=== PATIENT | male | born 1955 | race American Indian/Alaskan Native ===

== ENCOUNTER 2017-05-08 08:05 | Day surgery (SDC) | payer BC, OTHER ==
[~2017-05-08] VITALS: Ht 165.1 cm; Wt 72.6 kg
[~2017-05-08 08:05] MED LIST: ALKA-SELTZER H1 EACH PO; FLAGYL500 MG PO; NORCO 5-325 TA1 EACH PO; PEPTO-BISMOL262 MG PO; TUMS300 MG PO
--- NOTE | 2017-05-08 11:40 | NUR ---
05/08/17 1140 Charlette Louise [facility] [place]
--- NOTE | 2017-05-08 13:41 | NUR ---
PT AMBULATORY TO RESTROOM WITHOUT ASSIST. REPORTS HE WAS UNABLE TO URINATE AGAIN DESPITE URGE.
--- NOTE | 2017-05-08 13:57 | NUR ---
PT AGAIN UP TO RESTROOM. STATES HE WAS ABLE TO GO "A COUPLE DROPS". RETURNS TO BED.
--- NOTE | 2017-05-08 14:29 | NUR ---
PT UP TO RESTROOM, STATES HE IS GOING "A LITTLE BIT AT A TIME" BUT DOES NOT FEEL THAT HE IS EMPTYING HIS BLADDER. PT REPORTS PAIN 4/10 AT THIS TIME.
--- NOTE | 2017-05-08 15:06 | NUR ---
16 FR SIMMONS CATHETER INSERTED USING STERILE TECHNIQUE PER PROTOCOL USING LIDOCAINE LUBRICANT. PT HAS SIGNIFICANT DISCOMFORT W/INSERTION OF SIMMONS AND RESISTANCE IS NOTED AT THE LEVEL OF THE PROSTATE. 575 ML LIGHT YELLOW URINE EMPTIED FROM OVERNIGHT BAG AND PT AND HIS SIG OTHER ARE BOTH EDUCATED RE KEEPING THE SIMMONS TO GRAVITY AND RETURNING TO DR. GAMEZ'S OFFICE ON SATURDAY TO HAVE THE SIMMONS REMOVED. PT AND SIG OTHER BOTH VERBALIZE UNDERSTANDING. SIMMONS SECURED W/CATH SECURE ON RIGHT UPPER THIGH. PT REPORTS MUCH RELIEF OF BLADDER PAIN W/SIMMONS PLACEMENT.
[2017-05-08] MEDS ORDERED: NORCO 10-325 T1 EACH PO (15:07)
--- NOTE | 2017-05-08 15:38 | NUR ---
LE 1215: ICE WATER AND APPLE SAUCE GIVEN, CALL LIGHT WITHIN REACH. PT UP TO BATHROOM WITH RN STANDBY. PT AMBULATES WELL AND DENIES DIZZINESS. PT UNABLE TO EMPTY BLADDER. PT REQUESTS TO STAND AT BEDSIDE. PT REPORTS DISCOMFORT IN BLADDER. PT EATING APPLESAUCE AND TOLERATING WELL. PT BLADDER SCANNED AND NOTED TO HAVE 841ML IN BLADDER. NOTIFIED, NEW ORDER RECEIVED. IN AND OUT CATHETERIZATION DONE USING STERILE TECHNIQUE PER PROTOCOL AND LIDOCAINE LUBRICANT. PT TOLERATES WELL. 800 MLS OF LIGHT YELLOW URINE EXPELLED. LE 1500: PT REPORTS CONTINUED INABILITY TO EMPTY BLADDER. PT BLADDER SCANNED, 566 MLS NOTED. NOTIFIED, NEW ORDER RECEIVED. LE 1520: VERBAL DC INSTRUCTIONS GIVEN. PT AND SIGNIFICANT OTHER VERBALIZE UNDERSTANDING AND QUESTIONS ANSWERED. PT DRESSED WHEN RN ENTERS ROOM AND REQUESTING DC HOME. SIGNIFICANT OTHER TEARFUL AND REPORTS BEING HUNGRY. RN OFFERS LUNCH TRAY AND SHE DECLINED. PT TRANSFERS WELL TO WHEELCHAIR AND PERSONAL VEHICLE AND IS DC'D HOME.
--- NOTE | 2017-05-08 16:50 | NUR ---
CALLED DR GAMEZ'S OFFICE AND SPOKE TO JESSIE REGARDING SIMMONS CATHETER REMOVAL ON SATURDAY (05/10/17) AT OFFICE.
--- NOTE | 2017-05-15 18:42 | OR ---
[facility] [address] [place], [place] [address] Signed DATE OF OPERATION: 05/08/2017 SURGEON: Shana Llanos MD PREOPERATIVE DIAGNOSIS: Reducible bilateral inguinal hernias. POSTOPERATIVE DIAGNOSIS: Reducible bilateral direct inguinal hernias. PROCEDURE: Bilateral Suman onlay mesh inguinal herniorrhaphy. ESTIMATED BLOOD LOSS: None. INDICATIONS: Richie is a 61-year-old gentleman who works in the [employer] for many years. There was a lot of heavy lifting in his line of work. He has been noticing some pain and swelling mainly in the right groin. His primary care provider realized he had a right inguinal hernia and asked him to see me as a general surgeon. He has been there for at least 3 months and he said it is worse when he has to bend over do activities. In the office, we realized on exam that he has bilateral inguinal hernias. The right is larger than the left. They both appear to be reducible. I had given him a brochure on hernias and we looked at that together in detail. He understands the nature of an inguinal hernia along with the difference between a primary suture repair and a mesh repair. We also reviewed the expected intraop and postop course. There is risk including but not limited to bleeding, infection, scarring, change in contour of the skin, damage to the nerves, ischemic orchitis, and recurrent hernias. He had expressed understanding and wished to proceed. PROCEDURE NOTE: Richie was taken into our operating room and placed in the supine position. He was given preoperative antibiotics along with subcutaneous heparin. SCDs were utilized. He was in agreement to repair both groin hernias. After this, he was prepped and draped in the usual sterile fashion. We made a standard oblique incision in his right groin and carried this down through the tissue bluntly and with the cautery. The external oblique fascia was developed along its length medially and laterally. The cord structures were then elevated at the level of pubic tubercle. The ilioinguinal and iliohypogastric nerves were visualized and protected throughout the case. On inspection, he had a Electronically Signed By: SHANA LLANOS MD 05/15/17 1842 PATIENT NAME: RICHIE BADILLO IIIONY OPERATIVE REPORT DATE OF : 55 PHYSICIAN: SHANA LLANOS MD REPORT #: [id number] REPORT IS CONFIDENTIAL AND NOT TO BE RELEASED WITHOUT AUTHORIZATION [facility] [address] [place] [id number] Signed moderate-sized direct inguinal reducible hernia. We inspected the cord structures at the level of deep ring and we looked carefully and there was no evidence of an indirect hernia sac. We therefore reduced the direct hernia and we imbricated the inguinal floor starting from the pubic tubercle up to the level of the deep ring with a running #2-0 PDS suture. After this, a piece of flat Prolene mesh was cut to fit his groin and a mesh was held in place medially and laterally with the help of running #1 Prolene suture. A slit had been made in the mesh to accommodate the cord structures at the level of deep ring. After this, local anesthetic was copiously injected in the wound. The wound was irrigated and suctioned out until clear. The external oblique fascia was closed over the repair with a running 2-0 PDS suture. Nkechi fascia was reapproximated in a running 3-0 Monocryl suture. The dermis was reapproximated with interrupted 3-0 Monocryl sutures. The skin edges were then reapproximated in a running 6-0 fast absorbing plain gut suture. After this, we approached his left groin. We used a measuring tape to measure out a mirror-image incision in the left groin, and the surgery and the repair were identical to the right. The left inguinal hernia was just slightly smaller than the right. Again, the ilioinguinal and iliohypogastric nerves were visualized and protected throughout the case. After this, dry gauze and tape was applied to both groins. He was awakened from his anesthesia, extubated in the OR, and taken to recovery room in stable condition. Shana Llanos MD [facility] /[id number] cc: MD Wu Moise PA Electronically Signed By: SHANA LLANOS MD 05/15/17 1842 PATIENT NAME: RICHIE BADILLO III OPERATIVE REPORT DATE OF : 55 PHYSICIAN: SHANA LLANOS MD REPORT #: [id number] REPORT IS CONFIDENTIAL AND NOT TO BE RELEASED WITHOUT AUTHORIZATION
== END 2017-05-08 15:25 | disposition home or self-care (01) ==
LOC: DS 08:05
PROVIDERS: Colon & Rectal Surgery
PROC: 0YUA0JZ Supplement Bilateral Inguinal Region with Synthetic Substitute, Open Approach (ICD-10-PCS; principal; 2017-05-08 09:00)
DX: K40.20 Bilateral inguinal hernia, without obstruction or gangrene, not specified as recurrent (principal); I10 Essential (primary) hypertension; E78.5 Hyperlipidemia, unspecified; E11.9 Type 2 diabetes mellitus without complications; F17.210 Nicotine dependence, cigarettes, uncomplicated
CPT/HCPCS: 00830; C1781; J0330; J0690; J1100; J1170; J1644; J1885; J2250; J2405; J2704; J3010; J7120

== ENCOUNTER 2017-07-08 07:13 | Emergency (ER) | payer BC, OTHER ==
[~2017-07-08] VITALS: Ht 165.1 cm; Wt 72.6 kg
[~2017-07-08 07:13] MED LIST changes: +NORCO 10-325 T1 EACH PO
[2017-07-08] MEDS ORDERED: PYRIDIUM200 MG PO (08:04)
[2017-07-08] MEDS ORDERED: DITROPAN XL5 MG PO (08:04)
[2017-07-08] MEDS ORDERED: FLOMAX0.4 MG PO (08:04)
== END 2017-07-08 08:10 | disposition home or self-care (01) ==
LOC: ED 07:13
PROC: 4A0D7LZ Measurement of Urinary Volume, Via Natural or Artificial Opening (ICD-10-PCS; principal; 2017-07-08)
PROC: 0T9B70Z Drainage of Bladder with Drainage Device, Via Natural or Artificial Opening (ICD-10-PCS; 2017-07-08)
DX: N40.1 Benign prostatic hyperplasia with lower urinary tract symptoms (principal); R33.8 Other retention of urine; I10 Essential (primary) hypertension; F17.200 Nicotine dependence, unspecified, uncomplicated
CPT/HCPCS: 51702; 51798; 81001; 99284

== ENCOUNTER 2017-07-11 07:34 | Emergency (ER) | payer BC, OTHER ==
[~2017-07-11] VITALS: Ht 165.1 cm; Wt 72.6 kg
[~2017-07-11 07:34] MED LIST changes: +DITROPAN XL5 MG PO; +FLOMAX0.4 MG PO; +PYRIDIUM200 MG PO
== END 2017-07-11 08:21 | disposition home or self-care (01) ==
LOC: ED 07:34
DX: T83.098A Other mechanical complication of other urinary catheter, initial encounter (principal); I10 Essential (primary) hypertension; F17.200 Nicotine dependence, unspecified, uncomplicated; Z79.899 Other long term (current) drug therapy
CPT/HCPCS: 99283

== ENCOUNTER 2020-07-08 13:37 | Emergency (ER) | payer BC, OTHER ==
[~2020-07-08] VITALS: Ht 165.1 cm; Wt 72.6 kg
--- NOTE | 2020-07-09 06:58 | EKG ---
[facility] [address] [facility] [place] [address] Signed Sinus tachycardia Otherwise normal ECG When compared with ECG of 07-MAY-2017 14:06, T wave inversion now evident in Inferior leads T wave inversion no longer evident in Lateral leads Confirmed by KENYA NAVA MD ([id number]) on 07/09/2020 6:58:30 AM Electronically Signed By: KENYA NAVA MD 07/09/20 0658 PATIENT NAME: SKYLAR BADILLO [facility] Electrocardiogram DATE OF : 55 PHYSICIAN: KENYA NAVA MD REPORT #: [id number] REPORT IS CONFIDENTIAL AND NOT TO BE RELEASED WITHOUT AUTHORIZATION
== END 2020-07-08 17:58 | disposition home or self-care (01) ==
LOC: ED 13:37
DX: R33.9 Retention of urine, unspecified (principal); D72.829 Elevated white blood cell count, unspecified; Z20.822 Contact with and (suspected) exposure to COVID-19; I10 Essential (primary) hypertension; F17.200 Nicotine dependence, unspecified, uncomplicated; Z79.899 Other long term (current) drug therapy
CPT/HCPCS: 51702; 51798; 71045; 80053; 81001; 83605; 83735; 84443; 84484; 85025; 93005; 93010; 99284-25; 99406; C9803; U0003

== ENCOUNTER 2020-07-29 16:28 | Emergency (ER) | payer BC, OTHER ==
[~2020-07-29] VITALS: Ht 165.1 cm; Wt 69.4 kg
[~2020-07-29 16:28] MED LIST changes: +AMLODIPINE BESY10 MG PO; +ASPIRIN325 MG PO; +ATORVASTATIN CA40 MG PO; +CLONIDINE HCL0.1 MG PO; +LEVETIRACETAM500 MG PO; +TAMSULOSIN HCL0.4 MG PO
--- OUTSIDE RECORDS SUMMARY | 2020-07-29 16:30 | XMS ---
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 Care History Medical/Surgical 07/13/2020 [facility] PATIENT HAS AN APT WITH UROLOGIST DR DEY 07/21/2020. 07/13/2020 [facility] PATIENT IS [facility] ELIGIBLE, \T\middot;\T\nbsp; PLEASE REFER PATIENT TO [facility] FOR NON EMERGENT MEDICAL NEEDS. \T\middot;\T\nbsp; [facility] CAN SEE PATIENTS SAME DAY FOR APTS IF PATIENT CALLS FIRST THING IN THE MORNING. E.D. VISIT COUNT (12 MO.) 3 [facility] TOTAL 3 NOTE: Visits indicate total known visits. 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
== END 2020-07-29 18:04 | disposition home or self-care (01) ==
LOC: ED 16:28
PROC: 0T9B70Z Drainage of Bladder with Drainage Device, Via Natural or Artificial Opening (ICD-10-PCS; principal; 2020-07-29)
DX: T83.091A Other mechanical complication of indwelling urethral catheter, initial encounter (principal); I10 Essential (primary) hypertension; E11.9 Type 2 diabetes mellitus without complications; F17.200 Nicotine dependence, unspecified, uncomplicated; Z79.899 Other long term (current) drug therapy; Z79.82 Long term (current) use of aspirin
CPT/HCPCS: 51702; 81001; 99283-25

== ENCOUNTER 2021-03-25 16:46 | Emergency (ER) | payer OTHER ==
[~2021-03-25] VITALS: Ht 165.1 cm; Wt 65.7 kg
[2021-03-25] MEDS ORDERED: FLOMAX0.4 MG PO (17:02)
== END 2021-03-25 17:47 | disposition home or self-care (01) ==
LOC: ED 16:46
PROC: 4A0D7LZ Measurement of Urinary Volume, Via Natural or Artificial Opening (ICD-10-PCS; principal; 2021-03-25)
DX: R33.9 Retention of urine, unspecified (principal); I10 Essential (primary) hypertension; E11.9 Type 2 diabetes mellitus without complications; E78.00 Pure hypercholesterolemia, unspecified; F17.200 Nicotine dependence, unspecified, uncomplicated; Z79.82 Long term (current) use of aspirin; Z79.899 Other long term (current) drug therapy
CPT/HCPCS: 51798; 81001; 99283-25

== ENCOUNTER 2021-04-07 05:57 | Emergency (ER) | payer OTHER ==
[~2021-04-07] VITALS: Ht 162.6 cm; Wt 68.0 kg
--- OUTSIDE RECORDS SUMMARY | 2021-04-07 06:04 | XMS ---
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/[place] 07/13/2020-[facility] PHONE: [phone] Shanna has no Care Guidelines for this patient. Care History Medical/Surgical 07/13/2020 [facility] PATIENT IS [facility] ELIGIBLE, \T\middot;\T\nbsp; PLEASE REFER PATIENT TO [facility] FOR NON EMERGENT MEDICAL NEEDS. \T\middot;\T\nbsp; [facility] CAN SEE PATIENTS SAME DAY FOR APTS IF PATIENT CALLS FIRST THING IN THE MORNING. 07/13/2020 [facility] PATIENT HAS AN APT WITH UROLOGIST DR DEY 08/04/2020. E.D. VISIT COUNT (12 MO.) 5 [facility] TOTAL 5 NOTE: Visits indicate total known visits. ED/UCC VISIT TRACKING (12 MO.) 04/07/2021 05:[address] [facility] [place] TYPE: Emergency COMPLAINT: - URINE PROBLEM 03/25/2021 16:46 [facility] [place] TYPE: Emergency COMPLAINT: - URINE PROBLEM DIAGNOSES: - Nicotine dependence, unspecified, uncomplicated - Retention of urine, unspecified - emt intermediate (current) use of aspirin - Essential (primary) hypertension - Other care home (current) drug therapy - Pure hypercholesterolemia, unspecified - Type 2 diabetes mellitus without complications 07/29/2020 16:28 [facility] [place] TYPE: Emergency COMPLAINT: - URINE PROBLEM DIAGNOSES: - Dysuria - Other mechanical complication of indwelling urethral catheter, initial encounter - Type 2 diabetes mellitus without complications - alf (current) use of aspirin - Other emt intermediate (current) drug therapy - Essential (primary) hypertension - Nicotine dependence, unspecified, uncomplicated 07/12/2020 09:32 [facility] [place] TYPE: Emergency COMPLAINT: - CATHETER REMOVAL DIAGNOSES: - Type 2 diabetes mellitus without complications - Nicotine dependence, unspecified, uncomplicated - alf (current) use of aspirin - Other care home (current) drug therapy - Pure hypercholesterolemia, unspecified - Encounter for fitting and adjustment of urinary device - Essential (primary) hypertension 07/08/2020 13:38 [facility] [place] TYPE: Emergency COMPLAINT: - UNABLE TO URINATE DIAGNOSES: - Essential (primary) hypertension - Retention of urine, unspecified - Elevated white blood cell count, unspecified - Nicotine dependence, unspecified, uncomplicated - Other emt intermediate (current) drug therapy INPATIENT VISIT TRACKING (12 MO.) No inpatient visits to display in this time frame [email or web address]
== END 2021-04-07 07:24 | disposition home or self-care (01) ==
LOC: ED 05:57
DX: R33.9 Retention of urine, unspecified (principal); I10 Essential (primary) hypertension; E11.9 Type 2 diabetes mellitus without complications; Z86.73 Personal history of transient ischemic attack (TIA), and cerebral infarction without residual deficits; E78.00 Pure hypercholesterolemia, unspecified; F17.200 Nicotine dependence, unspecified, uncomplicated; Z79.899 Other long term (current) drug therapy; Z79.82 Long term (current) use of aspirin
CPT/HCPCS: 51702; 51798; 80053; 81001; 85025; 99283-25

== ENCOUNTER 2021-04-26 16:51 | Emergency (ER) | payer OTHER ==
[~2021-04-26] VITALS: Ht 162.6 cm; Wt 68.0 kg
--- OUTSIDE RECORDS SUMMARY | 2021-04-26 16:58 | XMS ---
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 Care History Medical/Surgical 07/13/2020 [facility] PATIENT IS [facility] ELIGIBLE, \T\middot;\T\nbsp; PLEASE REFER PATIENT TO [facility] FOR NON EMERGENT MEDICAL NEEDS. \T\middot;\T\nbsp; [facility] CAN SEE PATIENTS SAME DAY FOR APTS IF PATIENT CALLS FIRST THING IN THE MORNING. 07/13/2020 [facility] PATIENT HAS AN APT WITH UROLOGIST DR DEY 08/04/2020. E.D. VISIT COUNT (12 MO.) 6 [facility] TOTAL 6 NOTE: Visits indicate total known visits. ED/UCC VISIT TRACKING (12 MO.) 04/26/2021 16:52 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 - Essential (primary) hypertension - Nicotine dependence, unspecified, uncomplicated - Type 2 diabetes mellitus without complications 03/25/2021 16:46 [facility] [place] TYPE: Emergency COMPLAINT: - URINE PROBLEM DIAGNOSES: - Nicotine dependence, unspecified, uncomplicated - Retention of urine, unspecified - 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 - Essential (primary) hypertension - Other nursing home (current) drug therapy - Pure hypercholesterolemia, unspecified - Type 2 diabetes mellitus without complications [facility] COMPLAINT: - URINE PROBLEM DIAGNOSES: - Dysuria - Other mechanical complication of indwelling urethral catheter, initial encounter - Type 2 diabetes mellitus without complications - 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 - Other intermediate designer (current) drug therapy - Essential (primary) hypertension - Nicotine dependence, unspecified, uncomplicated 07/12/2020 09[facility]32 [facility] COMPLAINT: - CATHETER REMOVAL DIAGNOSES: - Type 2 diabetes mellitus without complications - Nicotine dependence, unspecified, uncomplicated - 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 [place] TYPE: Emergency COMPLAINT: - UNABLE TO URINATE DIAGNOSES: - Essential (primary) hypertension - Retention of urine, unspecified - Elevated white blood cell count, unspecified - Nicotine dependence, unspecified, uncomplicated - Other nursing home (current) drug therapy INPATIENT VISIT TRACKING (12 MO.) No inpatient visits to display in this time frame [id number]
== END 2021-04-26 20:56 | disposition home or self-care (01) ==
LOC: ED 16:51
DX: R33.9 Retention of urine, unspecified (principal); I10 Essential (primary) hypertension; E11.9 Type 2 diabetes mellitus without complications; E78.00 Pure hypercholesterolemia, unspecified; F17.200 Nicotine dependence, unspecified, uncomplicated; Z79.899 Other long term (current) drug therapy; Z79.82 Long term (current) use of aspirin
CPT/HCPCS: 51702; 81001; 99283-25

== ENCOUNTER 2021-06-19 05:45 | Day surgery (SDC) | payer MEDICARE, OTHER ==
[~2021-06-19] VITALS: Ht 162.6 cm; Wt 70.0 kg
--- NOTE | 2021-06-19 06:08 | NUR ---
THIS RN TO ROOM TO ASSIST WITH IV START. IV STARTED PER PROTOCOL TO RIGHT FORARM, BRISK BLOOD RETURN NOTED. PT TOLERATED PROCEEDURE WELL. SCD'S APPLIED. BRII ARGUELLO, WORKING WITH PT. NO ADDITIONAL NEEDS AT THIS TIME. CALL LIGHT WITHIN REACH.
--- NOTE | 2021-06-19 06:20 | NUR ---
pt was swabbed for covid 19
--- NOTE | 2021-06-19 07:07 | NUR ---
SIMMONS CATH IN PLACE WHEN PT ARRIVED TO DS THIS MORNING. 150ML OF CLEAR YELLOW URINE IN SIMMONS BAG.
--- NOTE | 2021-06-19 08:29 | NUR ---
DR DEY IN WITH PT, WILL CHECK BACK
--- NOTE | 2021-06-19 10:45 | NUR ---
[facility] NON RESPONSIVE TO NOXIOUS STIMULI WITH OPA IN PLACE. 1000 PT REACTIVE. OPA REMOVED. 1015 OXYGEN REMOVED. SATS 90-93% ON RA. NO C/O'S. SIMMONS WITH CBI RUNNING. URINE LIGHT PINK IN COLOR. 1035 TO ROOM 123. REPORT GIVEN TO RN.
[2021-06-19] MEDS ORDERED: OXYCODONE HCL5 MG PO (10:55)
[2021-06-19] MEDS ORDERED: CIPRO500 MG PO (10:56)
--- NOTE | 2021-06-19 11:41 | NUR ---
1600 pink fluid dumped and recorded on wall for cbi - from jonathan. no addition/subtraction yet. pt resting - denies needs or pain - vs taken
--- NOTE | 2021-06-19 12:43 | NUR ---
pt resting denies pain, visitior alseep in ch. emptied castillo pink light urine with cbi irrigation - no totals yet. iv fusing well. scds on.
--- NOTE | 2021-06-19 13:49 | NUR ---
post op vitals x4 complete - pt denies needs, cbi wnl, iv fluids wnl - sipping water at bedside and occasional nap. call light in reach.
--- NOTE | 2021-06-19 17:22 | OR ---
[facility] [address], [place] [address] Signed DATE OF OPERATION: 06/19/2021 SURGEON: Gab Dey MD PREOPERATIVE DIAGNOSES: 1. Severe trilobar benign prostatic hyperplasia with lower urinary tract symptoms. 2. Acute urinary retention, status post multiple failed voiding trials. 3. Bullous edema present within the bladder, likely secondary to chronic indwelling Haynes catheter. POSTOPERATIVE DIAGNOSES: 1. Severe trilobar benign prostatic hyperplasia with lower urinary tract symptoms. 2. Acute urinary retention, status post multiple failed voiding trials. 3. Bullous edema present within the bladder, likely secondary to chronic indwelling Haynes catheter. 4. Negative diagnostic cystoscopy with interval resolution of bullous edema related to chronic indwelling Haynes catheter. NAMES OF PROCEDURE: Transurethral resection of the prostate. ANESTHESIA: General. ESTIMATED BLOOD LOSS: 50 mL. COMPLICATIONS: None. SPECIMENS: Multiple prostate chips sent to pathology for evaluation. DRAINS: A 22-Gibraltarian three-way Haynes catheter, connected to continuous bladder irrigation. INDICATIONS FOR PROCEDURE: Mr. Caballero is a very pleasant 65-year-old gentleman who presented to the emergency room in acute urinary retention a couple of months ago. He was subsequently placed on Flomax and despite the medication, continued to fail multiple voiding trials. He ultimately Electronically Signed By: GAB DEY MD 06/19/21 1722 PATIENT NAME: RICHIE CABALLERO [facility] OPERATIVE REPORT DATE OF : 55 REPORT #: [id number] PHYSICIAN: GAB DEY MD PCP: [facility] REPORT IS CONFIDENTIAL AND NOT TO BE RELEASED WITHOUT AUTHORIZATION [facility] [address], [place] [address] Signed underwent diagnostic cystoscopy, which revealed severe trilobar benign prostatic hyperplasia with active evidence of bladder outlet obstruction. Also, noted that time was some bullous edema present on the dome and posterior wall of the bladder that was likely secondary to reactive changes related to his chronic indwelling Haynes catheter. I explained to the patient that the best and only chance that he has a voiding on his own is to undergo transurethral removal of his obstructing prostate since his bladder is no longer able to overcome the outlet resistance related to the obstructing tissue. We discussed the risks and benefits of the procedure, and he has agreed to proceed. OPERATIVE FINDINGS: 1. On cystoscopy, there was no evidence of any bullous edema present on the posterior wall or dome of the bladder. More specifically, there are no suspicious lesions present within the bladder that require biopsy today. He does have a couple of bladder diverticula, the largest is present in the inferior aspect of the lateral wall of the bladder. Bilateral ureteral orifices are in their normal anatomic location effluxing clear urine. 2. A digital rectal examination was performed, which revealed a flat, broad based gland measuring around 50 g. His gland is soft, smooth and symmetric with no focal nodules. 3. The patient has a very large trilobar gland was resected in a stepwise fashion. His large median lobe was resected and this was followed by the left lateral lobe in the right lateral lobe of the prostate. His prostate measured approximately 2.5 cm in length from the bladder neck to the verumontanum. The resection was performed down to the level of the verumontanum to avoid any potential iatrogenic injury to the external sphincter. This was a very large gland and required a solid 2 hours of resection time. 4. At the end of the procedure, a 22-Gibraltarian three-way Haynes catheter was inserted in the patient's bladder, connected to continuous bladder irrigation. DESCRIPTION OF PROCEDURE: After informed consent was obtained, the patient was taken back to the operating room. He was transferred from the [facility] to the operating room table, where general anesthesia was induced. He was placed in the dorsal lithotomy position and his genitalia prepped and draped in a standard sterile fashion. Using a 30-degree lens on a 22.5-Gibraltarian introducer, a rigid cystoscope was inserted in through his urethra into his bladder under direct visualization. Panendoscopic views of bladder then obtained. Please see the findings. Also, noted on inspection of the external genitalia is mild urethral erosion secondary to his chronic indwelling Haynes catheter. Most of the erosion is present at the urethral meatus at this time. I then inserted a visual obturator with a 26-Gibraltarian sheath. Prior to this, the patient's urethral meatus was dilated from 28-Gibraltarian to 34-Gibraltarian without difficulty. Once the sheath was in place, I switched to the visual obturator out for resectoscope with a 24-Gibraltarian loop. I noted the location of the bilateral ureteral orifices and they were noted to not be near the bladder neck. I then began resection of the very large median lobe of the prostate. Once this was Electronically Signed By: GAB DEY MD 06/19/21 1722 PATIENT NAME: RICHIE CABALLERO III OPERATIVE REPORT DATE OF : 55 REPORT #: [id number] PHYSICIAN: GAB DEY MD PCP: [facility] REPORT IS CONFIDENTIAL AND NOT TO BE RELEASED WITHOUT AUTHORIZATION [place] [address] Signed fully resected, I turned my attention to the left lateral lobe of the prostate. Again the resection was taken down to the level of verumontanum on all three sides. Also resected a small amount of the anterior bladder neck, I achieved and maintained hemostasis initially using the 24-Gibraltarian bipolar loop. The patient's bladder was then irrigated with a Amilcar syringe multiple times throughout the procedure in order to retrieve all the prostate chips that were then ultimately sent to pathology for evaluation. After about an hour and a half of resection time with the bipolar loop, I switched to the bipolar button to try to achieve some additional hemostasis. More prostate tissue was resected with a bipolar button as well. The very large median lobe was completely removed along with both lateral lobes of the prostate. With the bipolar button, I was able to achieve a good deal of hemostasis and I again re-evaluated the bilateral ureteral orifices and they appeared to be untouched after the resection of the patient's prostate. Once all the chips were extracted using a Amilcar syringe and hemostasis had been achieved and maintained, I removed the resectoscope, leaving the 26-Gibraltarian sheath behind. I then inserted a 0.035 Sensor wire through the sheath and into the patient's bladder. The sheath was then removed fully intact. Over the wire, I passed a 22-Gibraltarian three-way Haynes catheter into the patient's bladder and filled the balloon with 30 mL of sterile water. The catheter itself seated nicely into the TUR defect. The catheter was then manually irrigated multiple times to assure good position. It was then connected to continuous bladder irrigation. A digital rectal examination was then performed. Please see the above findings. The patient tolerated the procedure well without any complication. He will now be transferred to the postanesthesia care unit in stable condition. DISPOSITION: I called the patient's and left a message on her voicemail. I mentioned that I will be back later today to check on Richie and to answer any additional questions that they may have. He will be sent home with Cipro 500 mg p.o. b.i.d. for a total of 7 days along with oxycodone 5 mg one tab q.6 hours p.r.n. pain, dispense #20. He will remain here overnight so that his CBI may be weaned off slowly. He will be discharged to home tomorrow morning with a Haynes catheter to gravity drainage. He will return to clinic this , June 22, to undergo a voiding trial. MD ALEX Hodgson/KASSANDRAL /[id number] Electronically Signed By: GAB DEY MD 06/19/211721 PATIENT NAME: RICHIE CABALLERO III OPERATIVE REPORT DATE OF : 55 REPORT #: [id number] PHYSICIAN: GAB DEY MD PCP: [facility] REPORT IS CONFIDENTIAL AND NOT TO BE RELEASED WITHOUT AUTHORIZATION [facility] [address] [facility] [place], [place] [address] Signed Copies: ~ Electronically Signed By: GAB DEY MD 06/19/21 1722 PATIENT NAME: RICHIE CABALLERO [facility] OPERATIVE REPORT DATE OF : 55 REPORT #: [id number] PHYSICIAN: GAB DEY MD PCP: [facility] REPORT IS CONFIDENTIAL AND NOT TO BE RELEASED WITHOUT AUTHORIZATION
--- NOTE | 2021-06-19 18:12 | NUR ---
dr aguilar in to [place] to pt and , cbi bag changed,pt forgetful, when rn was in with pt a little bit ago - he did not know where he was or that surgery was done, he woke up and was talkative and confused, rn re oriented pt and call light in reach, answered questions for pt and . pt denies needs
--- NOTE | 2021-06-19 19:44 | NUR ---
RECEIVED REPORT FROM DAY SHIFT RN. PATIENT IS RESTING IN BED WATHCING TV. PATIENT DENIES ANY NEEDS. CALL LIGHT IN REACH.
--- NOTE | 2021-06-19 20:52 | NUR ---
ASSISTED PRIMARY BRII FAM. V/S AND I&O'S TAKEN AND RECORDED. ICE WATER REFILLED.
--- NOTE | 2021-06-19 21:00 | NUR ---
PATIENT ASSESMENT COMPLETED. VITALS TAKEN AND RECORDED. INTAKE AND OUTPUT RECORDED. SIMMONS EMPTIED AND SIMMONS CARE COMPLETED. PATIENT DENIES ANY PAIN. IV INFUSING PER ORDER. PATIENTS CB1 TITRATED DOWN. PATIENT DENIES ANY NEEDS OR QUESTIONS. CALL LIGHT IN REACH.
--- NOTE | 2021-06-19 23:06 | NUR ---
PATIENTS SIMMONS EMPTIED AND TITRATED CBI. PATIENT IS RESTING IN BED WITH EYES CLOSED, RR 17. CALL LIGHT IN REACH.
--- NOTE | 2021-06-20 00:33 | NUR ---
PATIENT IS RESTING IN BED WITH EYES CLSOED, RR 17. CALL LIGHT IN REACH. CBI CONTINUES AT A SLOW DRIP.
--- NOTE | 2021-06-20 02:40 | NUR ---
PATIENTS VITALS TAKEN AND RECORDED. SIMMONS EMPTIED. INTAKE AND OUTPUT RECORDED. CBI CLAMPED AT 0200. IV INFUSING PER ORDER. PATIENT DENIES ANY NEEDS. CALL LIGHT IN REACH.
--- NOTE | 2021-06-20 04:14 | NUR ---
PATIENT IS RESTING IN BED WITH EYES CLOSED, RR 18. PATIENT REMAINS ON 4L VIA NC. OXYGEN SATURATION IS 94%. CALL LIGHT IN REACH.
--- NOTE | 2021-06-20 05:46 | NUR ---
PATIENT ASSESMENT COMPLETED. CBI FLUSHED CLOT IN TUBING. VITALS TAKEN AND RECORDED. SIMMONS EMPTIED. INTAKE AND OUTPUT RECORDED. PATIENT DENIES ANY PAIN OR NEEDS. CALL LIGHT IN REACH.
--- NOTE | 2021-06-20 06:31 | NUR ---
PATIENT IS RESTING IN BED WITH EYES CLOSED, RR 16. CALL LIGHT IN REACH. CBI REMAINS CLAMPED YELLOW IN TUBE IS LIGHT PINK AND NO CLOTS NOTED.
--- NOTE | 2021-06-20 07:30 | NUR ---
SHIFT REPORT GIVEN TO THIS RN FROM BRII FAM ON [facility]. PATIENT IS RESTING QUIETLY, EYES CLOSED, RESPIRATIONS ARE REGULAR AND EVEN, AND CALL LIGHT IS IN REACH. PATIENT IS PUTTING OUT QUANTITY SUFFICIENT WATERMELON COLORED URINE WITH SOME SMALL CLOTS AND TISSUE PASING OUT OF THE SIMMONS. PATIENT HAS NO OTHER CARE NEEDS AT THIS TIME.
--- NOTE | 2021-06-20 09:08 | NUR ---
THIS RN AND STUDENT NURSE IN TO SEE PATIENT. WATERMELON COLORED URINE QUANTITY SUFFICIENT URINE COMING OUT OF SIMMONS AND IRRIGATION HAS BEEN OFF SINCE 2 AM PER CAREER LAW CLERK REPORT. PATIENT DENIES ANY PAIN OR NAUSEA. VS ARE STABLE. IV ANTIBIOTIC IS INFUSING AND PATIENT WILL BE READY FOR DC WHEN ANTIBIOTIC COMPLETE. KWAME ATE MOST OF HIS BREAKFAST AND DENIES ANY OTHER CARE NEEDS AT THIS TIME.
--- NOTE | 2021-06-20 09:36 | NUR ---
MED REC COMPLETE
[2021-06-20] MEDS ORDERED: FLOMAX0.4 MG PO (09:42)
--- NOTE | 2021-06-20 10:40 | NUR ---
PATIENT CONTINUES TO HAVE QUANTITY SUFFICIENT WATERMELON COLORED URINE OUT IN HIS SIMMONS. IRRIGATION PORT PLUGGED FOR DC. PATIENT CONTINUES TO DENY PAIN OR NAUSEA. DC INSTRUCTIONS VERBALLY GIVEN AND WRITTEN INSTRUCTIONS ALSO GIVEN. PATIENT AND HIS DAUGHTER VERBALIZED UNDERSTANDING TO ALL DC AND F/U INSTRUCTIONS. IV DC'D INTACT. PATIENT TAKEN OUT TO DAUGHTER'S PRIVATE CARE BY NURSING STAFF TO GO HOME.
--- NOTE | 2021-06-21 10:29 | PATH ---
[facility] [address], [place] [address] Signed SPECIMEN(S): A PROSTATE CHIPS SPECIMEN SOURCE: A. PROSTATE CHIPS CLINICAL HISTORY: BPH with LUTS, bladder lesion. Post: TURP, TURB. FINAL PATHOLOGIC DIAGNOSIS: Prostate chips, transurethral resection: - Benign prostatic tissue with stromal and glandular hyperplasia, consistent with features seen in benign prostatic hyperplasia. - Foci of chronic inflammation. TETOK:kraig:trina:C2NR MICROSCOPIC EXAMINATION: Histologic sections of all submitted blocks are examined by light microscopy. These findings, together with the gross examination, support the pathologic diagnosis. GROSS DESCRIPTION: The specimen, labeled "RM, prostate chips," is received in formalin and consists of irregular shaped, pink-oconnor, rubbery tissue fragments that aggregate measure 13 x 6.2 x 2.2 cm. Specimen weighs 36 grams. Approximately 55% of the specimen is submitted in 13 cassettes (A1-A13). JS (under the direct supervision of a pathologist) The Gross Description was prepared using a voice recognition system. The report was reviewed for accuracy; however, sound-alike word errors, addition and/or deletions may occur. If there is any question about this report, please contact Client Services. PERFORMING LABORATORY: The technical component was performed by [employer], [address] [place] [id number] (Layout Technician: Karen Keller MD; CLIA# [id number]). The professional [facility], [address] [place] [address]. Diagnostician: Buster Mccloud MD Pathologist PATIENT NAME: SKYLAR BADILLO III PATHOLOGY DATE OF : 55 REPORT #: [id number] PHYSICIAN: JENY PATHOLOGY PCP: [facility] REPORT IS CONFIDENTIAL AND NOT TO BE RELEASED WITHOUT AUTHORIZATION [address] [place] [address] Signed Electronically Signed 06/21/2021 Copies: ~ PATIENT NAME: SKYLAR BADILLO III PATHOLOGY DATE OF : 55 REPORT #: [id number] PHYSICIAN: [facility] PCP: [facility] REPORT IS CONFIDENTIAL AND NOT TO BE RELEASED WITHOUT AUTHORIZATION
== END 2021-06-20 10:40 | disposition home or self-care (01) ==
LOC: DS 05:45 → MS 05:45 → DS 06:45 → MS 10:35 → DS 06-20 10:40
PROVIDERS: ATTEND Urology
PROC: 0VT08ZZ Resection of Prostate, Via Natural or Artificial Opening Endoscopic (ICD-10-PCS; principal; 2021-06-19 06:45)
DX: N40.1 Benign prostatic hyperplasia with lower urinary tract symptoms (principal); R33.8 Other retention of urine; N13.8 Other obstructive and reflux uropathy; N32.89 Other specified disorders of bladder; N41.1 Chronic prostatitis; I10 Essential (primary) hypertension; E78.5 Hyperlipidemia, unspecified; G40.909 Epilepsy, unspecified, not intractable, without status epilepticus; F17.210 Nicotine dependence, cigarettes, uncomplicated; Z20.822 Contact with and (suspected) exposure to COVID-19
CPT/HCPCS: C1769; J0330; J0690; J0696; J1100; J1885; J2250; J2405; J2704; J2765; J3010; J7030; J7121; U0003

== ENCOUNTER 2024-11-02 15:09 | Emergency (ER) | payer MEDICARE, OTHER ==
[~2024-11-02] VITALS: Ht 162.6 cm; Wt 44.1 kg
[~2024-11-02 15:09] MED LIST changes: +CIPRO500 MG PO; +OXYCODONE HCL5 MG PO
[2024-11-02 16:30] VITALS: BP 152/77
== END 2024-11-02 17:18 | disposition home or self-care (01) ==
LOC: ED 15:09
DX: D72.829 Elevated white blood cell count, unspecified (principal); E11.9 Type 2 diabetes mellitus without complications; E78.00 Pure hypercholesterolemia, unspecified; I10 Essential (primary) hypertension; N40.0 Benign prostatic hyperplasia without lower urinary tract symptoms; F17.200 Nicotine dependence, unspecified, uncomplicated; Z86.73 Personal history of transient ischemic attack (TIA), and cerebral infarction without residual deficits; Z79.84 Long term (current) use of oral hypoglycemic drugs; Z79.82 Long term (current) use of aspirin; Z79.899 Other long term (current) drug therapy
CPT/HCPCS: 99283

== ENCOUNTER 2024-11-25 09:37 | Emergency (ER) | payer MEDICARE, OTHER ==
[~2024-11-25] VITALS: Ht 162.6 cm; Wt 38.1 kg
[2024-11-25] MEDS ORDERED: ALBUTEROL/IPRATROPIUM 3 ML NEB INH PRN (10:00)
[2024-11-25] MEDS ORDERED: CEREFOLIN TABL1 EACH (10:10)
[2024-11-25] MEDS ORDERED: METFORMIN HCL500 MG PO (10:10)
[2024-11-25 10:13] LABS: BASOPHILS 0.3 % (0.2-1.2); EOSINOPHILS 0.4 % (0.8-7.0); LYMPHOCYTES 14.3 % (21.8-53.1); MCH 26.5 PG (25.7-32.2); MCHC 32.6 g/dL (32.3-36.5); MCV 81.5 fL (79.0-92.2); MONOCYTES 4.0 % (5.3-12.2); NEUTROPHILS 80.4 % (34.0-67.9); RBC 4.37 M/uL (4.63-6.08)
[2024-11-25 10:38] LABS: ALT (SGPT) 11.0 U/L (14-59); AST (SGOT) 16.0 U/L (15-37); GLOMERULAR FILTRATION RATE,EST 47.0 mL/min (>60); PROTEIN, TOTAL 7.4 g/dL (6.4-8.2); UREA NITROGEN 35.0 mg/dL (7-18)
[2024-11-25] MEDS ORDERED: SODIUM CHLORIDE 0.9% 1,000 ML IV PRN (11:00)
[2024-11-25] MEDS ORDERED: POTASSIUM CHLORIDE 20 MEQ/15 ML CUP PO ONE (12:15)
[2024-11-25] MEDS ORDERED: AZITHROMYCIN 500 MG in DEXTROSE 5% 250 ML IV ONE (13:15)
[2024-11-25 14:54] VITALS: BP 145/96
--- NOTE | 2024-11-26 20:24 | EKG ---
[facility] [address] [facility] [place] [address] Signed Sinus tachycardia Left ventricular hypertrophy with repolarization abnormality ( Jonathan Betancourt ) Abnormal ECG When compared with ECG of 14-JUN-2021 10:40, Non-specific change in ST segment in Inferior leads ST now depressed in Lateral leads T wave inversion more evident in Inferior leads T wave inversion now evident in Lateral leads Confirmed by William Bailey MD () on 11/26/2024 8:24:11 PM Electronically Signed By: WILLIAM BAILEY MD 11/26/242023 PATIENT NAME: SKYLAR BADILLO [facility] Electrocardiogram DATE OF : 55 PHYSICIAN: WILLIAM BAILEY MD REPORT #: [id number] REPORT IS CONFIDENTIAL AND NOT TO BE RELEASED WITHOUT AUTHORIZATION
== END 2024-11-25 16:05 | disposition short-term general hospital (02) ==
LOC: ED 09:37
PROVIDERS: Emergency Medicine
DX: J18.9 Pneumonia, unspecified organism (principal); C80.0 Disseminated malignant neoplasm, unspecified; I10 Essential (primary) hypertension; E11.9 Type 2 diabetes mellitus without complications; E78.00 Pure hypercholesterolemia, unspecified; F17.200 Nicotine dependence, unspecified, uncomplicated; Z86.73 Personal history of transient ischemic attack (TIA), and cerebral infarction without residual deficits; Z79.84 Long term (current) use of oral hypoglycemic drugs; Z79.82 Long term (current) use of aspirin; Z79.899 Other long term (current) drug therapy
CPT/HCPCS: 36415; 71045; 71260; 80053; 83605; 83735; 83880; 84484; 85025; 93005; 93010; 94640; 96365; 96367; 99285-25; A9270; J0456; J0696; J7030; J7060; Q9967